=== PATIENT | male | born 1980 | race Caucasian/White ===

== ENCOUNTER 2016-12-21 14:43 | Emergency (ER) | payer SELFPAY | END 2016-12-21 16:37 | disposition critical access hospital (66) | LOC: ER 14:43 | DX: A41.9 Sepsis, unspecified organism (principal); Z88.0 Allergy status to penicillin | CPT/HCPCS: 36415; 80307; 87502; 87651; 96361; 96365; 96368; G0480; J3370 ==

== ENCOUNTER 2016-12-21 14:43 | Inpatient (IN) | payer SELFPAY ==
[~2016-12-21] VITALS: Ht 177.8 cm; Wt 100.8 kg
== END 2016-12-27 11:55 | disposition home or self-care (01) | DRG 872 ==
LOC: ER 14:43 → ICU 16:38 → MED 16:38 → ICU 12-22 08:15 → MED 12-22 12:39
PROVIDERS: ADMIT Internal Medicine
DX: A41.51 Sepsis due to Escherichia coli [E. coli] (principal); N17.9 Acute kidney failure, unspecified; N39.0 Urinary tract infection, site not specified; E87.2 Acidosis; R65.20 Severe sepsis without septic shock; R74.8 Abnormal levels of other serum enzymes; R73.9 Hyperglycemia, unspecified; Z88.0 Allergy status to penicillin; M79.1 Myalgia
CPT/HCPCS: 36415; 80307; 87502; 87651; G0480; J0696; J1650; J3370; J7040; J7050